=== PATIENT | female | born 1960 | race Caucasian/White ===

== ENCOUNTER 2017-12-03 17:48 | Emergency (ER) | payer SELFPAY ==
--- NOTE | 2017-12-03 19:28 | RAD ---
LEFT KNEE 4 VIEWS: Date: 12/03/17 HISTORY: Knee pain. FINDINGS: Joint spaces are normally maintained. Minimal degenerative change seen with tiny osteophytes from the posterior patella and lateral condyles. No fracture or acute abnormality. I cannot exclude small bryan nt effusion. IMPRESSION: Minimal degenerative change. Evidence of small joint effusion. No acute fracature. POS: [facility]
== END 2017-12-03 20:08 | disposition home or self-care (01) ==
LOC: ERS 17:48
DX: M17.12 Unilateral primary osteoarthritis, left knee (principal); G62.9 Polyneuropathy, unspecified; F17.210 Nicotine dependence, cigarettes, uncomplicated